=== PATIENT | male | born 1985 | race Caucasian/White ===

== ENCOUNTER 2019-08-11 04:51 | Emergency (ER) | payer SELFPAY ==
[~2019-08-11] VITALS: Ht 165.1 cm; Wt 90.9 kg
--- NOTE | 2019-08-11 05:46 | NUR ---
BREATHING TREATMENT GIVEN.
[2019-08-11 06:06] LABS: URINE BLOOD DIPSTICK MODERATE (NEGATIVE); URINE COLOR YELLOW; URINE GLUCOSE - DIPSTICK NEGATIVE (NEGATIVE); URINE KETONE 15 mg/dL (NEGATIVE); URINE LEUK ESTERASE NEGATIVE (NEGATIVE); URINE NITRITE - DIPSTICK NEGATIVE (Negative); URINE PH 5.5 (4.5-8.0); URINE PROTEIN - DIPSTICK >=300 mg/dL (NEG-TRACE); URINE SPECIFIC GRAVITY >=1.030; URINE UROBILINOGEN - DIPSTICK 0.2 E.U./dL (0.2)
[2019-08-11 06:13] LABS: URINE BILIRUBIN - DIPSTICK SMALL (NEGATIVE); URINE SQUAMOUS EPITHELIAL CELL FEW EPI/hpf (0-FEW)
[2019-08-11 06:16] LABS: HEMATOCRIT 38.2 % (39.0-50.0); HEMOGLOBIN 17.2 g/dl (14.0-18.0); IMMATURE GRANULOCYTES 0.3 % (0.0-5.0); MEAN CELL VOLUME 95.3 fL CALC (80.0-100.0); MEAN CORPUSCULAR HGB 42.9 pG CALC (26.0-32.0); NEUT# 12.78 thou/uL (1.82-7.42); RED BLOOD COUNT 4.01 mill/uL (4.70-6.10); RED CELL DISTRI WIDTH 15.3 % (11.5-15.5)
[2019-08-11 06:27] LABS: ALBUMIN 4.6 g/dL (3.2-5.0); ALKALINE PHOSPHATASE 90 u/l (38-126); AMYLASE 70 u/l (30-110); ANION GAP 22 (6-22 (CALC)); BILIRUBIN, TOTAL 2.6 mg/dL (0.0-1.4); BUN 11 mg/dL (9-20); BUN/CREATININE RATIO 13 (12-20 (CALC)); CARBON DIOXIDE 19 mmol/l (22-30); CHLORIDE 101 mmol/l (95-108); CREATININE 0.9 mg/dL (0.7-1.3); ETHYL ALCOHOL 207 mg/dl (0-30); GFR > 60 ML/MIN (>=60 (CALC)); GFR FOR AFR.AMER. > 60 ML/MIN (>=60 (CALC)); LIPASE 71 u/l (23-300); MAGNESIUM 1.6 mg/dL (1.6-2.3); SGOT/AST 40 u/l (17-59); SODIUM 139 mmol/l (137-146); TOTAL PROTEIN 7.9 g/dL (6.3-8.2)
[2019-08-11 06:30] LABS: ACT PARTIAL THROMBO TIME 26.8 SECONDS (20.0-32.5); D-DIMER 1.81 mg/L (0.19-0.60)
[2019-08-11] MEDS ORDERED: METRONIDAZOL500 MG PO (09:02)
[2019-08-11] MEDS ORDERED: CIPROFLOXACN500 MG PO (09:02)
[2019-08-11 10:30] VITALS: BP 132/70
== END 2019-08-11 10:30 | disposition home or self-care (01) | DRG 392 ==
LOC: ED 04:51
PROVIDERS: Family Medicine
DX: K52.9 Noninfective gastroenteritis and colitis, unspecified (principal); E87.6 Hypokalemia; F10.10 Alcohol abuse, uncomplicated; I10 Essential (primary) hypertension; F17.210 Nicotine dependence, cigarettes, uncomplicated; Z20.828 Contact with and (suspected) exposure to other viral communicable diseases
CPT/HCPCS: Q9967

== ENCOUNTER 2019-09-01 02:42 | Emergency (ER) | payer SELFPAY ==
[~2019-09-01] VITALS: Ht 165.1 cm; Wt 89.6 kg
[~2019-09-01 02:42] MED LIST: CIPROFLOXACN500 MG PO; METRONIDAZOL500 MG PO
[2019-09-01 03:06] LABS: HEMOGLOBIN 16.7 g/dl (14.0-18.0); IMMATURE GRANULOCYTES 0.2 % (0.0-5.0); MEAN CELL VOLUME 96.3 fL CALC (80.0-100.0); MEAN CORPUSCULAR HGB 36.2 pG CALC (26.0-32.0); MEAN CORPUSCULAR HGB CONC 37.6 g/dL CAL (32.0-36.0); NEUT# 2.95 thou/uL (1.82-7.42); RED BLOOD COUNT 4.61 mill/uL (4.70-6.10); RED CELL DISTRI WIDTH 15.4 % (11.5-15.5)
[2019-09-01 03:12] LABS: HEMATOCRIT 44.4 % (39.0-50.0)
[2019-09-01 03:39] LABS: ALBUMIN 4.8 g/dL (3.2-5.0); ALKALINE PHOSPHATASE 88 u/l (38-126); BUN 12 mg/dL (9-20); BUN/CREATININE RATIO 13 (12-20 (CALC)); CHLORIDE 103 mmol/l (95-108); CREATININE 0.9 mg/dL (0.7-1.3); ETHYL ALCOHOL 276 mg/dl (0-30); GFR > 60 ML/MIN (>=60 (CALC)); GFR FOR AFR.AMER. > 60 ML/MIN (>=60 (CALC)); SODIUM 142 mmol/l (137-146); TOTAL PROTEIN 7.5 g/dL (6.3-8.2)
[2019-09-01 03:41] LABS: URINE BILIRUBIN - DIPSTICK NEGATIVE (NEGATIVE); URINE BLOOD DIPSTICK MODERATE (NEGATIVE); URINE COLOR YELLOW; URINE GLUCOSE - DIPSTICK NEGATIVE (NEGATIVE); URINE KETONE 40 mg/dL (NEGATIVE); URINE NITRITE - DIPSTICK NEGATIVE (Negative); URINE PH 5.5 (4.5-8.0); URINE PROTEIN - DIPSTICK 100 mg/dL (NEG-TRACE); URINE SPECIFIC GRAVITY >=1.030; URINE UROBILINOGEN - DIPSTICK 0.2 E.U./dL (0.2)
[2019-09-01 03:43] LABS: URINE LEUK ESTERASE NEGATIVE (NEGATIVE)
[2019-09-01 03:44] LABS: URINE EPITHELIAL CELLS FEW EPI/hpf (0-FEW)
[2019-09-01 03:45] LABS: URINE BACTERIA MODERATE hpf; URINE FINE GRAN CAST MODERATE lpf; URINE HYALINE CAST MODERATE lpf (NONE-RARE)
[2019-09-01 03:46] LABS: URINE COARSE GRANULAR CAST MODERATE lpf
[2019-09-01 03:51] LABS: ANION GAP 19 (6-22 (CALC)); BILIRUBIN, TOTAL 0.7 mg/dL (0.0-1.4); CARBON DIOXIDE 24 mmol/l (22-30); POTASSIUM 3.9 mmol/l (3.5-5.1); SGOT/AST 118 u/l (17-59)
[2019-09-01 09:20] VITALS: BP 120/57
== END 2019-09-01 09:33 | disposition home or self-care (01) | DRG 897 ==
LOC: ED 02:42
PROVIDERS: Emergency Medicine
DX: F10.129 Alcohol abuse with intoxication, unspecified (principal); I10 Essential (primary) hypertension; F17.200 Nicotine dependence, unspecified, uncomplicated; Y90.8 Blood alcohol level of 240 mg/100 ml or more; Z20.828 Contact with and (suspected) exposure to other viral communicable diseases
CPT/HCPCS: J2060